=== PATIENT | female | born 1965 | race Caucasian/White ===

== ENCOUNTER 2021-09-16 09:26 | Emergency (ER) | payer BC ==
[~2021-09-16] VITALS: Ht 167.6 cm; Wt 151.5 kg
== END 2021-09-16 13:43 | disposition home or self-care (01) ==
LOC: ER1 09:26
DX: U07.1 COVID-19 (principal); Z23 Encounter for immunization
CPT/HCPCS: 99283; M0243

== ENCOUNTER 2021-09-19 19:13 | Inpatient (IN) | payer BC ==
[~2021-09-19] VITALS: Ht 167.6 cm; Wt 151.5 kg
[2021-09-19 21:02] LABS: RED BLOOD COUNT 4.66 M/UL (4.00-5.10); WHITE BLOOD COUNT 10.6 K/UL (4.5-11.0)
[2021-09-19 21:20] LABS: BUN/CREATININE RATIO 16 (0-10)
[2021-09-20] MEDS ORDERED: ZYRTEC10 MG PO (02:08)
[2021-09-20 10:42] LABS: BUN/CREATININE RATIO 20 (0-10)
--- NOTE | 2021-09-20 19:56 | NUR ---
PT BROUGHT TO THE FLOOR AT 1810; SHE HAS AN ORDER FOR TELE BUT ER STATES THAT THE PATIENT WAS NON-COMPLIANT IN ER. PT STATES NO ONE ASK HER ABOUT A TELE AND SHE WAS PLACED ON THE TELE. WITHIN MINUTES TELE CALLED OUT AND THE PT'S HR WAS RUNNING BETWEEN 120-190. CALL MADE TO NOTIFY DR. ELISEO RIGGINS; ORDER FOR LOPRESSOR 25MG NOW AND LOPRESSOR 25MG BID STARTING 09/21/21 0900. STAT EKG EKG SHOWS AFIB WITH RVR CALLED TO DR. RIGGINS. ORDER FOR TSH IN AM CHANGE LOVENOX TO 1MG/KG AND 2D ECHO FOR 09/21/[address] OF CHEST HAD BEEN ORDERED PREVIOUSLY BUT HAD NOT BEEN DONE. CALLED CT TO VERIFY WE COULD BRING THE PT STAT. PT LEFT THE FLOOR BY ANALI FOR CT AT 1999
--- NOTE | 2021-09-20 21:49 | NUR ---
CALLED DR. NUNEZ EXPLAINED AFTER LOPRESSOR 25 MG PT HR STILL 120-160'S. ORDER FOR CARDIZEM IV 10MG AND RECHECK IN 10 MINUTES. IF SBP IS GREATER THAN 100 AND HR GREATER THAN 100, GIVE 2ND DOSE OF CARDIZEM 10MG. RECHECK IN TEN MINUTES; IF SBP IS GREATER THAN 100 AND HR IS GREATER THAN 100 START CARDIZEM DRIP. IF CARDIZEM DRIP IS NEEDED WILL NEED TO TRANSFER TO PCU.
--- NOTE | 2021-09-20 23:12 | NUR ---
AFTER 2 DOSES OF CARDIZEM 10MG EACH PT HR IS 120-150 BP 129/59. PT MOVED TO BE TRANSFERRED TO U ROOM 2565. 1156 REPORT CALLED TO [facility] AND PT TRANSPORTED BY [facility].
--- NOTE | 2021-09-20 23:17 | NUR ---
PATIENT'S HR 160'S FIRST DOSE OF CARDIZEM 10MG IV WAS PUSHED AT 2201 OVER 2 MINUTES. RECHECKED VITALS SIGN AT 2155. BP 133/88 HR 150 GAVE SECOND DOSE OF CARDIZEM 10MG AT 2221 OVER 2 MINUTES. RECHECKED VITAL SIGNS AT 2233 BP 129/59 HR 120.
[2021-09-21 06:36] LABS: HEMOGLOBIN 11.8 gm/dl (12.3-15.3); WHITE BLOOD COUNT 11.3 K/UL (4.5-11.0)
[2021-09-21 06:37] LABS: RED BLOOD COUNT 4.06 M/UL (4.00-5.10)
[2021-09-21 07:05] LABS: BUN/CREATININE RATIO 21 (0-10)
[2021-09-22 02:58] LABS: HEMOGLOBIN 12.2 gm/dl (12.3-15.3); RED BLOOD COUNT 4.19 M/UL (4.00-5.10); WHITE BLOOD COUNT 11.6 K/UL (4.5-11.0)
[2021-09-23 03:22] LABS: HEMOGLOBIN 12.6 gm/dl (12.3-15.3); RED BLOOD COUNT 4.26 M/UL (4.00-5.10)
[2021-09-23 03:27] LABS: WHITE BLOOD COUNT 14.7 K/UL (4.5-11.0)
[2021-09-23 03:54] LABS: BUN/CREATININE RATIO 32 (0-10)
[2021-09-23] MEDS ORDERED: PROTONIX 40 MG40 M1 PO (09:37)
[2021-09-23] MEDS ORDERED: LOPRESSOR 50 MG50 MG PO (09:37)
[2021-09-23] MEDS ORDERED: DOXYCYCLINE HY100 M2 PO (09:37)
[2021-09-23] MEDS ORDERED: ELIQUIS 5 MG TAB5 MG PO (09:37)
[2021-09-23] MEDS ORDERED: COMBIVENT RESPIM4 GM INH (09:37)
[2021-09-23] MEDS ORDERED: DEXAMETHASONE6 MG PO (09:39)
== END 2021-09-23 11:06 | disposition home or self-care (01) | DRG 640 ==
LOC: ER1 19:13 → PROG CARE 09-20 00:26 → CDU 09-20 00:26 → M/S 09-20 17:26 → PROG CARE 09-20 23:13
PROVIDERS: Internal Medicine; Internal Medicine Infectious Disease; Physician Assistant Medical; ADMIT Internal Medicine
PROC: 8E0ZXY6 Isolation (ICD-10-PCS; principal; 2021-09-20)
PROC: 3E0333Z Introduction of Anti-inflammatory into Peripheral Vein, Percutaneous Approach (ICD-10-PCS; 2021-09-20)
DX: E87.1 Hypo-osmolality and hyponatremia (principal); U07.1 COVID-19; J12.82 Pneumonia due to coronavirus disease 2019; Z68.43 Body mass index [BMI] 50.0-59.9, adult; E86.1 Hypovolemia; E87.8 Other disorders of electrolyte and fluid balance, not elsewhere classified; I44.7 Left bundle-branch block, unspecified; E66.01 Morbid (severe) obesity due to excess calories; I48.91 Unspecified atrial fibrillation; Z79.01 Long term (current) use of anticoagulants
CPT/HCPCS: ECHO; 36415; 71045; 71275; 80048; 80053; 82436; 82533; 82570; 82728; 83615; 83735; 83930; 83935; 84133; 84156; 84300; 84439; 84443; 85025; 85379; 86140; 93005; 93306; 96365; 96372; 96374; 96375; 96376; 99284; G0378; J0696; J1100; J1650; J1885; J2405; Q9957; Q9967; U0002

== ENCOUNTER → 2022-05-09 | Outpatient (CLI) | payer BC ==
[~2022-05-09] MED LIST: COMBIVENT RESPIM4 GM INH; DEXAMETHASONE6 MG PO; DOXYCYCLINE HY100 M2 PO; ELIQUIS 5 MG TAB5 MG PO; LOPRESSOR 50 MG50 MG PO; PROTONIX 40 MG40 M1 PO; ZYRTEC10 MG PO
== END ==
LOC: KOH-I 09:33
DX: M79.672 Pain in left foot (principal); M19.072 Primary osteoarthritis, left ankle and foot
CPT/HCPCS: 73630